=== PATIENT | male | born 1995 | race African-American/Black ===

== ENCOUNTER 2020-06-04 05:29 | Emergency (ER) | payer MEDICAID ==
[~2020-06-04] VITALS: Ht 177.8 cm; Wt 84.1 kg
[2020-06-04 06:39] LABS: BASO % 0.4 % (0.0-2.0); EOS % 0.3 % (0-4.0); GRAN # 4.1 (1.4-6.5); GRAN % 55.3 % (42.2-75.2); HEMATOCRIT 43.4 % (42.0-52.0); HEMOGLOBIN 14.6 g/dl (13.5-18.0); LYMPH # 2.7 (1.2-3.4); MEAN CELL VOLUME 84 fl (80.0-100.0); MEAN CORPUSCULAR HEMOGLOBIN 28 pg (27.0-31.0); MEAN CORPUSCULAR HGB CONC 34 g/dl (33.0-37.0); MEAN PLATELET VOLUME 9.9 fl (7.4-10.4); MONO # 0.6 (0.1-0.6); MONO % 7.7 % (1.7-9.3); PLATELET COUNT 261 K/mm3 (130-400); RED BLOOD COUNT 5.18 M/mm3 (4.20-5.60); REDCELL DISTRIBUTION WIDTH-CV 14.4 % (11.5-14.5)
[2020-06-04 06:47] LABS: ALANINE AMINOTRANSFERASE 42 U/L (4-49); ALBUMIN 4.6 gm/dL (3.5-5.0); ALKALINE PHOSPHATASE 59 U/L (50-136); ANION GAP 10 mmol/L (7-16); AST,SGOT 70 U/L (15-37); BILIRUBIN,TOTAL 0.9 mg/dL (0.0-1.0); BLOOD UREA NITROGEN 13 mg/dL (9-20); CALCIUM 10.1 mg/dL (8.4-10.2); CARBON DIOXIDE 24 mmol/L (22-30); CHLORIDE 103 mmol/L (98-107); CREATINE KINASE 1545 U/L (55-170); CREATININE, serum 0.98 (0.66-1.25); GLUCOSE 97 mg/dL (74-106); POTASSIUM 3.8 mmol/L (3.4-5.0); SODIUM 137 mmol/L (137-145); TOTAL PROTEIN 8.3 gm/dL (6.4-8.2)
[2020-06-04 06:51] LABS: ACETAMINOPHEN < 10 ug/mL (10-30); ALCOHOL(ethanol),MEDICAL < 10 mg/dL; SALICYLATE < 1.0 mg/dL
[2020-06-04 13:43] LABS: COLLECTION METHOD CLEAN CATCH
[2020-06-04 13:50] LABS: MUCOUS Present /lpf; PH 5 (5-8); SQUAMOUS EPITHELIAL None Seen /hpf; URINE APPEARANCE Clear; URINE BACTERIA None Seen /hpf; URINE BILIRUBIN Negative (NEGATIVE); URINE BLOOD Negative (NEGATIVE); URINE COLOR Yellow; URINE GLUCOSE Negative (NEGATIVE); URINE KETONE Trace (NEGATIVE); URINE LEUKOCYTE ESTERASE Negative (NEGATIVE); URINE NITRATE Negative (NEGATIVE); URINE PROTEIN(semi-quant) 1+ (NEGATIVE); URINE RBC 0-2 /hpf; URINE WBC 0-2 /hpf
[2020-06-04 15:02] LABS: TRICYCLIC ANTIDEPRESS URINE NEGATIVE
--- NOTE | 2020-06-04 15:25 | NUR ---
[facility]Z was called to ED to assist with talking to patient about next of kin. ED nurse provided that patient had been in the ED since 6am and now was about to talk, but could not give any information in regards to family, places he lived or any point of contact. FITZ contacted staff at patients last known address which was [facility]. Staff at the agency stated that patient did not have any points of contact listed. [facility] officer contacted his department and could not find any other known addresses or contacts for patient. FITZ went in to speak to patient and patient stated that he had a point of contact which was his mother Albina Marley [phone]. Patient stated that he did not have any sisters brothers or a father to provide numbers for. FITZ informed nurse of patient's mother's name and number. Nothing further.
[2020-06-07 11:30] LABS: CALCIUM 10.1 mg/dL (8.4-10.2); CREATININE, serum 0.87 (0.66-1.25); POTASSIUM 4.4 mmol/L (3.4-5.0)
--- NOTE | 2020-06-07 16:25 | NUR ---
family support worker assisted patient with zoom employment law attorney meeting and court hearing. Patient is on wait list for involuntary placement at [facility].
[2020-06-09 07:56] VITALS: TEMP 97.1
[2020-06-09 18:53] VITALS: BP 114/73; PULSE 84
== END 2020-06-09 19:20 ==
LOC: COL.ER 05:29
PROVIDERS: Emergency Medicine; Family Medicine
DX: R41.82 Altered mental status, unspecified (principal); M62.82 Rhabdomyolysis; Z20.822 Contact with and (suspected) exposure to COVID-19
CPT/HCPCS: J1200; J1630; J2060; J2250; J3480; J7120

== ENCOUNTER 2020-08-17 00:31 | Emergency (ER) | payer MEDICAID ==
[~2020-08-17] VITALS: Ht 177.8 cm; Wt 77.3 kg
[2020-08-17 01:38] LABS: BASO % 0.6 % (0.0-2.0); EOS # 0.1 (0.0-0.7); EOS % 0.8 % (0-4.0); GRAN # 3.6 (1.4-6.5); GRAN % 57.7 % (42.2-75.2); HEMATOCRIT 40.8 % (42.0-52.0); HEMOGLOBIN 13.8 g/dl (13.5-18.0); LYMPH # 2.1 (1.2-3.4); LYMPH % 33.1 % (20.0-51.0); MEAN CELL VOLUME 86 fl (80.0-100.0); MEAN CORPUSCULAR HEMOGLOBIN 29 pg (27.0-31.0); MEAN CORPUSCULAR HGB CONC 34 g/dl (33.0-37.0); MEAN PLATELET VOLUME 10.2 fl (7.4-10.4); MONO # 0.5 (0.1-0.6); MONO % 7.6 % (1.7-9.3); PLATELET COUNT 185 K/mm3 (130-400); RED BLOOD COUNT 4.73 M/mm3 (4.20-5.60); REDCELL DISTRIBUTION WIDTH-CV 14.5 % (11.5-14.5)
[2020-08-17 01:59] LABS: ALANINE AMINOTRANSFERASE 23 U/L (4-49); ALBUMIN 4.4 gm/dL (3.5-5.0); ALKALINE PHOSPHATASE 46 U/L (50-136); ANION GAP 10 mmol/L (7-16); AST,SGOT 31 U/L (15-37); BILIRUBIN,TOTAL 0.4 mg/dL (0.0-1.0); BLOOD UREA NITROGEN 15 mg/dL (9-20); CALCIUM 9.5 mg/dL (8.4-10.2); CARBON DIOXIDE 22 mmol/L (22-30); CHLORIDE 108 mmol/L (98-107); CREATINE KINASE 425 U/L (55-170); CREATININE, serum 0.88 (0.66-1.25); GLUCOSE 117 mg/dL (74-106); POTASSIUM 3.3 mmol/L (3.4-5.0); SODIUM 140 mmol/L (137-145)
[2020-08-17 02:02] LABS: ACETAMINOPHEN < 10 ug/mL (10-30); ALCOHOL(ethanol),MEDICAL < 10 mg/dL; SALICYLATE < 1.0 mg/dL
[2020-08-17 05:15] LABS: COLLECTION METHOD CLEAN CATCH
[2020-08-17 05:23] LABS: MUCOUS Present /lpf; PH 6 (5-8); SQUAMOUS EPITHELIAL 0-2 /hpf; URINE APPEARANCE Hazy; URINE BACTERIA None Seen /hpf; URINE BILIRUBIN Negative (NEGATIVE); URINE BLOOD Negative (NEGATIVE); URINE COLOR Yellow; URINE GLUCOSE Negative (NEGATIVE); URINE KETONE Negative (NEGATIVE); URINE LEUKOCYTE ESTERASE Negative (NEGATIVE); URINE NITRATE Negative (NEGATIVE); URINE PROTEIN(semi-quant) 1+ (NEGATIVE); URINE RBC 0-2 /hpf
[2020-08-17 05:28] LABS: TRICYCLIC ANTIDEPRESS URINE NEGATIVE
[2020-08-20 14:14] VITALS: BP 163/87; TEMP 98
[2020-08-20 14:45] VITALS: PULSE 90
== END 2020-08-20 16:00 ==
LOC: COL.ER 00:31
PROVIDERS: Emergency Medicine
DX: F23 Brief psychotic disorder (principal); R45.1 Restlessness and agitation
CPT/HCPCS: G0463; J1200; J1630; J2060; J2250

== ENCOUNTER 2020-12-03 19:13 | Emergency (ER) | payer MEDICAID ==
[2020-12-03 21:51] LABS: BASO % 0.3 % (0.0-2.0); EOS % 0.3 % (0-4.0); GRAN # 4.3 (1.4-6.5); GRAN % 60.5 % (42.2-75.2); HEMATOCRIT 49.6 % (42.0-52.0); LYMPH % 27.9 % (20.0-51.0); MEAN CELL VOLUME 84 fl (80.0-100.0); MEAN CORPUSCULAR HEMOGLOBIN 29 pg (27.0-31.0); MEAN CORPUSCULAR HGB CONC 34 g/dl (33.0-37.0); MEAN PLATELET VOLUME 10.5 fl (7.4-10.4); MONO # 0.8 (0.1-0.6); MONO % 10.7 % (1.7-9.3); PLATELET COUNT 261 K/mm3 (130-400); RED BLOOD COUNT 5.93 M/mm3 (4.20-5.60); REDCELL DISTRIBUTION WIDTH-CV 13.5 % (11.5-14.5)
[2020-12-03 21:59] LABS: ALANINE AMINOTRANSFERASE 42 U/L (4-49); ALBUMIN 5.1 gm/dL (3.5-5.0); ALKALINE PHOSPHATASE 73 U/L (50-136); ANION GAP 13 mmol/L (7-16); AST,SGOT 116 U/L (15-37); BILIRUBIN,TOTAL 0.7 mg/dL (0.0-1.0); BLOOD UREA NITROGEN 15 mg/dL (9-20); CALCIUM 10.7 mg/dL (8.4-10.2); CARBON DIOXIDE 22 mmol/L (22-30); CHLORIDE 108 mmol/L (98-107); CREATININE, serum 1.14 (0.66-1.25); GLUCOSE 116 mg/dL (74-106); POTASSIUM 3.9 mmol/L (3.4-5.0); SODIUM 143 mmol/L (137-145); TOTAL PROTEIN 9.4 gm/dL (6.4-8.2)
[2020-12-03 22:16] LABS: ACETAMINOPHEN < 10 ug/mL (10-30); ALCOHOL(ethanol),MEDICAL < 10 mg/dL; SALICYLATE < 1.0 mg/dL
[2020-12-04 07:26] LABS: COLLECTION METHOD CLEAN CATCH
[2020-12-04 08:05] LABS: TRICYCLIC ANTIDEPRESS URINE NEGATIVE
[2020-12-04 08:07] LABS: MUCOUS Present /lpf; PH 5 (5-8); SQUAMOUS EPITHELIAL 0-2 /hpf; URINE APPEARANCE Hazy; URINE BACTERIA None Seen /hpf; URINE BILIRUBIN Negative (NEGATIVE); URINE BLOOD Negative (NEGATIVE); URINE COLOR Amber; URINE GLUCOSE Negative (NEGATIVE); URINE KETONE Trace (NEGATIVE); URINE LEUKOCYTE ESTERASE Negative (NEGATIVE); URINE NITRATE Negative (NEGATIVE); URINE PROTEIN(semi-quant) 1+ (NEGATIVE); URINE RBC 0-2 /hpf; URINE UROBILINOGEN >=4.0 mg/dL (NEGATIVE)
[2020-12-11 14:26] VITALS: BP 159/98; PULSE 70; TEMP 98
== END 2020-12-11 16:00 ==
LOC: COL.ER 19:13
PROVIDERS: Nurse Practitioner
DX: F29 Unspecified psychosis not due to a substance or known physiological condition (principal); R45.6 Violent behavior; Z20.822 Contact with and (suspected) exposure to COVID-19
CPT/HCPCS: J1200; J1630; J2060

== ENCOUNTER 2021-02-25 12:07 | Emergency (ER) | payer SELFPAY ==
[~2021-02-25] VITALS: Ht 177.8 cm; Wt 82.7 kg
[2021-02-25 13:24] LABS: COLLECTION METHOD CLEAN CATCH
[2021-02-25 13:28] LABS: BASO % 0.6 % (0.0-2.0); EOS % 0.4 % (0-4.0); GRAN % 57.4 % (42.2-75.2); HEMATOCRIT 44.5 % (42.0-52.0); HEMOGLOBIN 15.1 g/dl (13.5-18.0); LYMPH # 2.2 K/mm3 (1.2-3.4); LYMPH % 31.7 % (20.0-51.0); MEAN CELL VOLUME 82 fl (80.0-100.0); MEAN CORPUSCULAR HEMOGLOBIN 28 pg (27.0-31.0); MEAN CORPUSCULAR HGB CONC 34 g/dl (33.0-37.0); MEAN PLATELET VOLUME 10.4 fl (7.4-10.4); MONO # 0.7 K/mm3 (0.1-0.6); MONO % 9.8 % (1.7-9.3); PLATELET COUNT 241 K/mm3 (130-400); RED BLOOD COUNT 5.43 M/mm3 (4.20-5.60); REDCELL DISTRIBUTION WIDTH-CV 15.6 % (11.5-14.5)
[2021-02-25 13:36] LABS: MUCOUS Present (NOT PRESENT); PH 5 (5-8); SQUAMOUS EPITHELIAL 0-2 /hpf (0-10); URINE APPEARANCE Hazy (CLEAR/HAZY); URINE BACTERIA Rare (NONE SEEN); URINE BILIRUBIN Negative (NEGATIVE); URINE BLOOD Negative (NEGATIVE); URINE COLOR Amber (YELLOW); URINE GLUCOSE Negative (NEGATIVE); URINE KETONE Trace (NEGATIVE); URINE LEUKOCYTE ESTERASE Negative (NEGATIVE); URINE NITRATE Negative (NEGATIVE); URINE PROTEIN(semi-quant) 2+ (NEGATIVE); URINE RBC 0-2 /hpf (0-2)
[2021-02-25 13:41] LABS: TRICYCLIC ANTIDEPRESS URINE NEGATIVE
[2021-02-25 13:47] LABS: ACETAMINOPHEN < 1.0 ug/mL (10-30); ALANINE AMINOTRANSFERASE 24 U/L (0-55); ALBUMIN 4.6 gm/dL (3.5-5.0); ALCOHOL(ethanol),MEDICAL 10 mg/dL (0-10); ALKALINE PHOSPHATASE 52 U/L (40-150); ANION GAP 12 mmol/L (7-16); AST,SGOT 34 U/L (5-34); BILIRUBIN,TOTAL 1.2 mg/dL (0.2-1.2); BLOOD UREA NITROGEN 11 mg/dL (9-21); CALCIUM 10.2 mg/dL (8.4-10.2); CARBON DIOXIDE 23 mmol/L (22-29); CHLORIDE 105 mmol/L (98-107); CREATININE, serum 1.07 mg/dL (0.72-1.25); GLUCOSE 108 mg/dL (70-99); POTASSIUM 3.4 mmol/L (3.5-4.5); SODIUM 140 mmol/L (136-145); TOTAL PROTEIN 8.8 gm/dL (6.2-8.1)
[2021-02-25 14:43] LABS: SALICYLATE < 5.0 mg/dL (15.0-30.0)
[2021-02-26 12:13] VITALS: TEMP 98.8
[2021-02-26 15:00] VITALS: BP 139/80; PULSE 66
--- NOTE | 2021-02-26 15:19 | NUR ---
[facility] was notified by RN that patient was accepted to [facility] and will leave shortly. SW notified Maynor Cantor, patient's assistant county attorney as well as the court registry officer and state's attorney's office.
== END 2021-02-26 15:00 ==
LOC: COL.ER 12:07
PROVIDERS: Nurse Practitioner Primary Care
DX: R46.89 Other symptoms and signs involving appearance and behavior (principal); Z20.822 Contact with and (suspected) exposure to COVID-19

== ENCOUNTER 2021-08-31 14:51 | Emergency (ER) | payer OTHER ==
[~2021-08-31] VITALS: Ht 177.8 cm; Wt 77.3 kg
[2021-08-31] MEDS ORDERED: AMOXICILLIN 8751 TAB PO (15:41)
[2021-08-31 16:03] VITALS: BP 131/61
[2021-08-31 16:21] VITALS: PULSE 106
== END 2021-08-31 16:26 | disposition home or self-care (01) ==
LOC: COL.ER 14:51
DX: S61.411A Laceration without foreign body of right hand, initial encounter (principal); W22.8XXA Striking against or struck by other objects, initial encounter
CPT/HCPCS: J3486

== ENCOUNTER 2022-05-23 16:07 | Emergency (ER) | payer MEDICAID ==
[~2022-05-23] VITALS: Ht 182.9 cm; Wt 81.8 kg
[~2022-05-23 16:07] MED LIST: AMOXICILLIN 8751 TAB PO
[2022-05-23 16:53] LABS: COLLECTION METHOD CLEAN CATCH
[2022-05-23 16:58] LABS: BASO # 0.1 K/mm3 (0.0-0.2); BASO % 0.7 % (0.0-2.0); EOS # 0.1 K/mm3 (0.0-0.7); EOS % 1.1 % (0.0-4.0); GRAN # 3.9 K/mm3 (1.4-6.5); GRAN % 51.9 % (42.2-75.2); HEMATOCRIT 51.8 % (42.0-52.0); LYMPH # 2.8 K/mm3 (1.2-3.4); LYMPH % 37.8 % (20.0-51.0); MEAN CELL VOLUME 86 fl (80.0-100.0); MEAN CORPUSCULAR HEMOGLOBIN 28 pg (27-31); MEAN CORPUSCULAR HGB CONC 33 g/dl (33.0-37.0); MEAN PLATELET VOLUME 10.3 fl (7.4-10.4); MONO # 0.6 K/mm3 (0.1-0.6); MONO % 8.4 % (1.7-9.3); PLATELET COUNT 227 K/mm3 (130-400); RED BLOOD COUNT 6.03 M/mm3 (4.20-5.60); REDCELL DISTRIBUTION WIDTH-CV 13.7 % (11.5-14.5)
[2022-05-23 17:10] LABS: TRICYCLIC ANTIDEPRESS URINE NEGATIVE
[2022-05-23 17:13] LABS: URINE APPEARANCE Clear (CLEAR/HAZY); URINE COLOR Amber (YELLOW)
[2022-05-23 17:14] LABS: URINE BLOOD Negative (NEGATIVE); URINE GLUCOSE Negative (NEGATIVE); URINE KETONE Negative (NEGATIVE); URINE NITRATE Negative (NEGATIVE); URINE PROTEIN(semi-quant) TRACE (NEGATIVE); URINE UROBILINOGEN 0.2 E.U/dL (0.2-1.0)
[2022-05-23 17:16] LABS: ALANINE AMINOTRANSFERASE 30 U/L (0-55); ALBUMIN 4.4 gm/dL (3.5-5.0); ALKALINE PHOSPHATASE 58 U/L (40-150); ANION GAP 12 mmol/L (7-16); AST,SGOT 23 U/L (5-34); BILIRUBIN,TOTAL 0.5 mg/dL (0.2-1.2); BLOOD UREA NITROGEN 7 mg/dL (9-21); CALCIUM 10.8 mg/dL (8.4-10.2); CARBON DIOXIDE 23 mmol/L (22-29); CHLORIDE 106 mmol/L (98-107); CREATININE, serum 0.92 mg/dL (0.72-1.25); GLUCOSE 87 mg/dL (70-99); POTASSIUM 3.5 mmol/L (3.5-4.5); SODIUM 141 mmol/L (136-145); TOTAL PROTEIN 8.8 gm/dL (6.2-8.1)
[2022-05-23 17:17] LABS: ACETAMINOPHEN < 1.0 ug/mL (10-30); ALCOHOL(ethanol),MEDICAL < 10 mg/dL (0-10); SALICYLATE < 5.0 mg/dL (15.0-30.0)
[2022-05-23 17:22] LABS: MUCOUS Present (NOT PRESENT); SQUAMOUS EPITHELIAL None Seen /hpf (0-10); URINE BACTERIA None Seen /hpf (NONE SEEN); URINE RBC 0-2 /hpf (0-2)
[2022-05-26 17:51] VITALS: BP 121/86; PULSE 60; TEMP 98.3
== END 2022-05-26 18:00 ==
LOC: COL.ER 16:07
PROVIDERS: Emergency Medicine
DX: F25.9 Schizoaffective disorder, unspecified (principal); Z20.822 Contact with and (suspected) exposure to COVID-19